=== PATIENT | male | born 1965 | race Two or more races ===

== ENCOUNTER 2018-07-23 06:51 | Inpatient (IN) | payer OTHER ==
[~2018-07-23] VITALS: Ht 177.8 cm; Wt 80.9 kg
[2018-07-23 06:58] VITALS: Ht 177.8 cm; Wt 80.9 kg
[2018-07-23 07:43] LABS: BASOPHIL % 0.4 % (0-2)
[2018-07-23 08:08] LABS: BILIRUBIN TOTAL 2.2 mg/dL (0.20-1.00); CALCIUM 8.4 mg/dL (8.5-10.1); CARBON DIOXIDE 20.4 mmol/L (21-32); CREATININE SERUM 2.3 mg/dL (0.7-1.3); POTASSIUM SERUM 5.5 mmol/L (3.5-5.1)
[2018-07-23 08:09] LABS: TOTAL PROTEIN, SERUM 5.6 g/dL (6.4-8.2)
[2018-07-23 08:10] LABS: PLATELET COUNT 112 x10^3mcL (130-400); RED CELL DISTRIBUTION WIDTH 16.8 % (11.5-14.5)
[2018-07-23 09:31] LABS: UA SPECIFIC GRAVITY >=1.030 (1.005-1.035); microscopic required? YES; urine erythrocyte NEGATIVE (NEGATIVE)
[2018-07-23 10:38] VITALS: BP 122/53
[2018-07-23 10:48] LABS: ovalocyte/elliptocyte 1+; tear drop cell (dacryocyte) 1+
[2018-07-23 11:09] LABS: rbc morphology (normal/abnorm) ABNORMAL (NORMAL)
[2018-07-23 13:01] VITALS: BP 106/47
[2018-07-23 15:14] LABS: BASOPHIL % 0.3 % (0-2)
[2018-07-23 15:36] LABS: RED CELL DISTRIBUTION WIDTH 17.8 % (11.5-14.5)
[2018-07-23 15:37] LABS: PLATELET COUNT 83 x10^3mcL (130-400)
[2018-07-23 16:36] VITALS: BP 108/59
[2018-07-23 20:59] VITALS: BP 107/54
[2018-07-24 05:49] VITALS: BP 114/65
[2018-07-24 06:51] LABS: BILIRUBIN TOTAL 1.8 mg/dL (0.20-1.00); CALCIUM 7.9 mg/dL (8.5-10.1); CARBON DIOXIDE 17.5 mmol/L (21-32); CREATININE SERUM 2.3 mg/dL (0.7-1.3); POTASSIUM SERUM 5.5 mmol/L (3.5-5.1)
[2018-07-24 06:52] LABS: ALBUMIN 1.9 g/dL (3.4-5.0); TOTAL PROTEIN, SERUM 5.6 g/dL (6.4-8.2)
[2018-07-24 07:47] LABS: PLATELET COUNT 96 x10^3mcL (130-400)
[2018-07-24 08:50] VITALS: BP 116/51
[2018-07-24 12:47] LABS: ATYPICAL LYMPH 1 %; BAND NEUTROPHIL 0 % (0-10); BASOPHIL 0 % (0-2); MONOCYTE 4 % (0-7); SEGMENTED NEUTROPHILS 83 % (37-75)
[2018-07-24 12:49] LABS: PLATELET MORPHOLOGY PLATELETS DECREASED; rbc morphology (normal/abnorm) ABNORMAL (NORMAL)
[2018-07-24 13:21] VITALS: BP 146/77
[2018-07-24 15:48] VITALS: BP 146/77
[2018-07-24 16:46] VITALS: BP 157/74
[2018-07-24 19:33] LABS: BASOPHIL % 0.7 % (0-2)
[2018-07-24 19:35] LABS: PLATELET COUNT 111 x10^3mcL (130-400); RED CELL DISTRIBUTION WIDTH 18.4 % (11.5-14.5)
[2018-07-24 19:40] VITALS: BP 148/78
== END 2018-07-24 19:58 | disposition short-term general hospital (02) | DRG 432 ==
LOC: ED 06:51 → DU 09:11
PROVIDERS: Emergency Medicine; Internal Medicine Gastroenterology; Internal Medicine Pulmonary Disease
PROC: 30233N1 Transfusion of Nonautologous Red Blood Cells into Peripheral Vein, Percutaneous Approach (ICD-10-PCS; 2018-07-23)
PROC: 0DB68ZX Excision of Stomach, Via Natural or Artificial Opening Endoscopic, Diagnostic (ICD-10-PCS; principal; 2018-07-24 13:30)
DX: K70.30 Alcoholic cirrhosis of liver without ascites (principal); K25.4 Chronic or unspecified gastric ulcer with hemorrhage; N17.9 Acute kidney failure, unspecified; N39.0 Urinary tract infection, site not specified; I85.00 Esophageal varices without bleeding; N18.4 Chronic kidney disease, stage 4 (severe); D64.9 Anemia, unspecified; E87.5 Hyperkalemia; I12.9 Hypertensive chronic kidney disease with stage 1 through stage 4 chronic kidney disease, or unspecified chronic kidney disease; E11.22 Type 2 diabetes mellitus with diabetic chronic kidney disease; F17.210 Nicotine dependence, cigarettes, uncomplicated; Z79.4 Long term (current) use of insulin
CPT/HCPCS: 43235; 82962; 83880; C9113; J0696; J1200; J1610; J2250; J2310; J2405; J3010; J3430; J3490; J7030; J7040; J7050; P9016; Q0092